=== PATIENT | male | born 2000 | race Caucasian/White ===

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

== ENCOUNTER 2020-02-11 15:56 | Emergency (ER) | payer MEDICAID ==
[~2020-02-11] VITALS: Ht 167.6 cm; Wt 70.3 kg
[~2020-02-11 15:56] MED LIST changes: -ACET-908 PO; -AMOX875T; -FLUO20CA22
[2020-02-11 16:02] VITALS: BP 128/69
[2020-02-11] MEDS ORDERED: FLUO20CA22 (16:06)
[2020-02-11] MEDS ORDERED: AMOX875T (16:06)
--- NOTE | 2020-02-12 06:18 | ECGEPIP ---
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 Order Number: [id number] Reading MD: Marvin Titus Measurements Intervals [place] Rate: 72 P: 40 OR: 179 QRS: 80 QRSD: 107 T: 48 QT: 338 QTc: 372 Interpretive Statements SINUS RHYTHM INCOMPLETE RIGHT BUNDLE BRANCH BLOCK NSTTW ABNORMALITY(S) SIMILAR TO 03/05/19 Electronically Signed on 02-12-2020 6:18:21 EDT by Marvin Titus
== END 2020-02-11 17:41 | disposition home or self-care (01) ==
LOC: M ED 15:56
DX: S23.41XA Sprain of ribs, initial encounter (principal); S70.01XA Contusion of right hip, initial encounter; W10.8XXA Fall (on) (from) other stairs and steps, initial encounter; Y92.9 Unspecified place or not applicable; Y93.9 Activity, unspecified; Y99.9 Unspecified external cause status; I45.10 Unspecified right bundle-branch block; F17.200 Nicotine dependence, unspecified, uncomplicated; Z88.8 Allergy status to other drugs, medicaments and biological substances

== ENCOUNTER 2020-03-07 13:29 | Emergency (ER) | payer MEDICAID ==
[~2020-03-07] VITALS: Ht 167.6 cm; Wt 68.9 kg
[~2020-03-07 13:29] MED LIST changes: +AMOX875T; +FLUO20CA22
[2020-03-07] MEDS ORDERED: ACET-908 PO (13:36)
[2020-03-07] MEDS ORDERED: IBUP-1022 PO (13:36)
[2020-03-07] MEDS ORDERED: ACETAMINOPHEN TAB 650MG DOSE (2X325MG) PO ONE (14:15)
--- NOTE | 2020-03-07 14:48 | REP ---
INDICATION: RIght hip pain s/p fall. COMPARISON: None. TECHNIQUE: AP view of the pelvis and AP and frogleg views of the right hip were obtained. FINDINGS: Bony pelvic ring is intact. No pelvic or sacral fracture is seen. No hip fracture is noted. There is sacralization of the transverse process on the left at L5. IMPRESSION: A transitional lumbosacral junction. No acute bony abnormality. No fracture seen. <Electronically signed by Casper Weeks > 03/07/20 [id number]
--- NOTE | 2020-03-07 14:50 | REP ---
INDICATION: R knee pain s/p fall. COMPARISON: Comparison radiographs are from March 07, 2019. TECHNIQUE: For FINDINGS: Four views of the right knee demonstrate normal bones, joints, and soft tissues. No fracture or subluxation is seen. No opaque foreign body noted. No sunrise view is included. IMPRESSION: Negative four view right knee series.. <Electronically signed by Casper Weeks > 03/07/20 [id number]
[2020-03-07 15:40] VITALS: BP 142/81
== END 2020-03-07 15:41 | disposition home or self-care (01) ==
LOC: M ED 13:29
DX: S70.01XA Contusion of right hip, initial encounter (principal); S80.01XA Contusion of right knee, initial encounter; X58.XXXA Exposure to other specified factors, initial encounter; Y92.018 Other place in single-family (private) house as the place of occurrence of the external cause; F17.210 Nicotine dependence, cigarettes, uncomplicated

== ENCOUNTER 2020-03-21 22:28 | Emergency (ER) | payer MEDICAID ==
[~2020-03-21] VITALS: Ht 167.6 cm; Wt 79.5 kg
[~2020-03-21 22:28] MED LIST changes: +ACET-908 PO
[2020-03-21 22:40] VITALS: BP 136/73
== END 2020-03-21 23:26 | disposition left against medical advice (07) ==
LOC: M ED 22:28
DX: Z53.21 Procedure and treatment not carried out due to patient leaving prior to being seen by health care provider (principal)

== ENCOUNTER → 2020-03-28 | Outpatient (REF) | payer MEDICAID ==
[~2020-03-28] MED LIST changes: +MIRT1TAB16 PO
[2020-03-28 17:18] LABS: HEMATOCRIT 48.7 % (42.0-52.0); HEMOGLOBIN 17.1 g/dl (13.5-17.5); MEAN CORPUSCULAR HEMOGLOBIN 30.4 pg (27.0-33.0); MEAN CORPUSCULAR HGB CONC 35.1 g/dl (32.0-36.5); MEAN CORPUSCULAR VOLUME 86.5 fl (80.0-96.0); PLATELET COUNT, AUTOMATED 213 10^3/uL (150-450); RED BLOOD COUNT 5.63 10^6/uL (4.30-6.10); WHITE BLOOD COUNT 6.7 10^3/uL (4.0-10.0)
[2020-03-28 17:43] LABS: BLOOD UREA NITROGEN 9 MG/DL (7-18); CALCIUM LEVEL 9.3 MG/DL (8.5-10.1); CARBON DIOXIDE LEVEL 32 MEQ/L (21-32); CHLORIDE LEVEL 105 MEQ/L (98-107); CREATININE FOR GFR 0.72 MG/DL (0.70-1.30); GLUCOSE, FASTING 83 MG/DL (70-100); POTASSIUM SERUM 3.8 MEQ/L (3.5-5.1); SODIUM LEVEL 141 MEQ/L (136-145); THYROID STIMULATING HORMONE 0.752 uIU/ML (0.463-3.98); VITAMIN B12 LEVEL 437 PG/ML
[2020-03-28 17:44] LABS: FOLATE 9.9 NG/ML
[2020-03-28 18:53] LABS: HEMOGLOBIN A1c 4.9 %
== END ==
LOC: M SFHCPLAZ 13:56
PROVIDERS: ATTEND Physician Assistant
DX: R42 Dizziness and giddiness (principal)

== ENCOUNTER 2020-04-01 20:41 | Emergency (ER) | payer MEDICAID ==
[~2020-04-01] VITALS: Ht 167.6 cm; Wt 71.8 kg
[~2020-04-01 20:41] MED LIST changes: -MIRT1TAB16 PO
[2020-04-01] MEDS ORDERED: ACETAMINOPHEN TAB 650MG DOSE (2X325MG) PO ONE (21:15)
[2020-04-01] MEDS ORDERED: MIRT1TAB16 PO (21:49)
[2020-04-01 22:30] VITALS: BP 119/67
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
== END 2020-04-01 23:02 | disposition home or self-care (01) ==
LOC: M ED 20:41
DX: S09.90XA Unspecified injury of head, initial encounter (principal); S80.212A Abrasion, left knee, initial encounter; Y04.0XXA Assault by unarmed brawl or fight, initial encounter; Y92.018 Other place in single-family (private) house as the place of occurrence of the external cause; F33.9 Major depressive disorder, recurrent, unspecified; Z79.899 Other long term (current) drug therapy; Z88.8 Allergy status to other drugs, medicaments and biological substances; F17.210 Nicotine dependence, cigarettes, uncomplicated

== ENCOUNTER 2020-05-10 05:18 | Emergency (ER) | payer MEDICAID ==
[~2020-05-10] VITALS: Ht 167.6 cm; Wt 71.8 kg
[~2020-05-10 05:18] MED LIST changes: +MIRT1TAB16 PO
[2020-05-10] MEDS ORDERED: LORazepam 2 MG/ML VIAL IM ONE (05:30)
[2020-05-10] MEDS ORDERED: diphenhydrAMINE 50MG/ML VIAL (J1200) IM ONE (05:30)
[2020-05-10] MEDS ORDERED: HALOPERIDOL 5MG/ML VIAL (J1630 PER 1) IM ONE (05:30)
[2020-05-10] MEDS ORDERED: LORazepam 2 MG/ML VIAL As Ordered ONE (05:31)
[2020-05-10 06:55] LABS: HEMATOCRIT 47.7 % (42.0-52.0); MEAN CORPUSCULAR HEMOGLOBIN 30.7 pg (27.0-33.0); MEAN CORPUSCULAR HGB CONC 35.6 g/dl (32.0-36.5); MEAN CORPUSCULAR VOLUME 86.3 fl (80.0-96.0); PLATELET COUNT, AUTOMATED 315 10^3/uL (150-450); RED BLOOD COUNT 5.53 10^6/uL (4.30-6.10); WHITE BLOOD COUNT 12.1 10^3/uL (4.0-10.0)
[2020-05-10 08:05] LABS: ACETAMINOPHEN LEVEL < 2.0 UG/ML (10.0-30.0); ALBUMIN 4.6 GM/DL (3.2-5.2); ALT/SGPT 31 U/L (12-78); BILIRUBIN,DIRECT 0.1 MG/DL (0.0-0.2); BILIRUBIN,TOTAL 0.5 MG/DL (0.2-1.0); BLOOD UREA NITROGEN 11 MG/DL (7-18); CALCIUM LEVEL 8.5 MG/DL (8.5-10.1); CARBON DIOXIDE LEVEL 20 MEQ/L (21-32); CHLORIDE LEVEL 110 MEQ/L (98-107); CREATININE FOR GFR 0.98 MG/DL (0.70-1.30); ETHYL ALCOHOL (ETHANOL) 0.161 % (0.000-0.010); GLUCOSE, FASTING 142 MG/DL (70-100); POTASSIUM SERUM 3.8 MEQ/L (3.5-5.1); SALICYLATE LEVEL 2.1 MG/DL (5.0-30.0); SODIUM LEVEL 145 MEQ/L (136-145); THYROID STIMULATING HORMONE 0.776 uIU/ML (0.463-3.98); TOTAL PROTEIN 8.1 GM/DL (6.4-8.2)
[2020-05-10 11:58] LABS: AMPHETAMINES LEVEL URINE NEGATIVE (NEGATIVE); BARBITURATES URINE NEGATIVE (NEGATIVE); BENZODIAZEPINES URINE NEGATIVE (NEGATIVE); CANNABINOIDS URINE NEGATIVE (NEGATIVE); COCAINE METABOLITE URINE NEGATIVE (NEGATIVE); METHADONE URINE NEGATIVE (NEGATIVE); OPIATES URINE NEGATIVE (NEGATIVE); PHENCYCLIDINE URINE NEGATIVE (NEGATIVE)
[2020-05-10 12:38] VITALS: BP 141/69
== END 2020-05-10 13:35 | disposition home or self-care (01) ==
LOC: M ED 05:18
DX: F10.229 Alcohol dependence with intoxication, unspecified (principal); Y90.0 Blood alcohol level of less than 20 mg/100 ml; Z79.899 Other long term (current) drug therapy; Z88.8 Allergy status to other drugs, medicaments and biological substances
CPT/HCPCS: 36415; 80048; 80076; 80307; 84443; 85027; 96372; 99285; G0480; J1200; J1630; J2060

== ENCOUNTER 2020-07-09 18:02 | Emergency (ER) | payer MEDICAID ==
[~2020-07-09] VITALS: Ht 165.1 cm; Wt 74.4 kg
[2020-07-09 18:04] VITALS: BP 134/77
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
[2020-07-09] MEDS ORDERED: IBUPROFEN 800 MG TAB PO ONE (18:50)
== END 2020-07-09 19:02 | disposition home or self-care (01) ==
LOC: M ED 18:02
DX: S60.512A Abrasion of left hand, initial encounter (principal); W22.8XXA Striking against or struck by other objects, initial encounter; Y92.018 Other place in single-family (private) house as the place of occurrence of the external cause; Z88.8 Allergy status to other drugs, medicaments and biological substances; F17.210 Nicotine dependence, cigarettes, uncomplicated

== ENCOUNTER 2020-09-23 16:40 | Emergency (ER) | payer MEDICAID ==
[~2020-09-23] VITALS: Ht 167.6 cm; Wt 71.8 kg
[~2020-09-23 16:40] MED LIST changes: -ACET-908 PO; +ACET-910 PO
[2020-09-23 16:47] VITALS: BP 130/86
[2020-09-23] MEDS ORDERED: MELA10CA2 PO (16:53)
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
[2020-09-23] MEDS ORDERED: ACETAMINOPHEN TAB 650MG DOSE (2X325MG) PO ONE (18:00)
== END 2020-09-23 18:25 | disposition home or self-care (01) ==
LOC: M ED 16:40
DX: S60.221A Contusion of right hand, initial encounter (principal); S80.01XA Contusion of right knee, initial encounter; T14.8XXA Other injury of unspecified body region, initial encounter; V19.3XXA Pedal cyclist (driver) (passenger) injured in unspecified nontraffic accident, initial encounter; Y92.018 Other place in single-family (private) house as the place of occurrence of the external cause; F84.5 Asperger's syndrome; Z87.820 Personal history of traumatic brain injury; Z79.899 Other long term (current) drug therapy; Z88.8 Allergy status to other drugs, medicaments and biological substances

== ENCOUNTER 2021-03-10 00:52 | Emergency (ER) | payer MEDICAID ==
[~2021-03-10] VITALS: Ht 167.6 cm; Wt 65.9 kg
[2021-03-10 00:52] VITALS: BP 133/72
[~2021-03-10 00:52] MED LIST changes: +MELA10CA2 PO
--- OUTSIDE RECORDS SUMMARY | 2021-03-10 00:56 | CCD ---
Author Author Dave Benavidez Organization Unknown Address [address] [address] Phone Care Team Providers Care Box Car Checker Name Role Phone Marilyn Benavidez PCP Allergies, Adverse Reactions, Alerts Concept Allergy Name Reaction Severity Onset Date Status Documentation Date Phone Number Npid Taxonomy Code Taxonomy Desc Author Last Name Author Fi rst Name Concept Type 19921214 risperidone unspecified 11/27/2015 Active 11/27/2015 31 [id number] Psychiatry Woznchristiano Overton RXNORM 19921214 risperidone unspecified Active 05/07/2014 [id number] Registered Nurse Lyly Dailey RXNORM Problem List Concept Problem Description Status Start Date Created Date Resolv ed Date Snomed Code F32.9 Unspecified depressive Disorder Active 12/28/19 21 F70 Intellectual Disability (Intellectual Developmen mariya Disorder), Mild Active 12/27/2020 Medications Rx Norm Medication Route Route Concept Start Date Stop Date Dosage Johnny quency Duration Formula Strength Dosage Form Dosage Form Code Dosage Description Medication Id Account Npid Author First Name Author Last Name Taxonomy Code Taxonomy Desc Phone Number [id number] amantadine HCl 05/07/2014 100 mg capsule as directed 60586 [id number] Jerry Rdz [id number] Child & Adolescent Psychi atry [id number] chlorpromazine 05/07/2014 at bedtime 25 [place] 23203 163823 [id number] Tian Lea [id number] Psychiatry [id number] 451361 memantine 11/27/2015 at bedtime 10 mg tablet 82062 831875 [id number] Tian Lea [id number] Psychiatry [id number] 234688 Seroquel 11/27/2015 at bedtime 300 mg tablet 45406 019629 [id number] Tian Lea [id number] Psychiatry [id number] 792104 clonidine HCl 12/30/2015 twice a day 0.2 [place] [address] 431327 [id number] Tian Lea [id number] Psychiatry [id number] Allergy Relief (cetirizine) 12/30/2015 at bedtim e 10 mg tablet 30282 890302 [id number] Jerry Rdz [id number] Child & Ad olescent Psychiatry [id number] 7930169 Depakote 02/25/2016 every morning 250 mg tablet,delayed release (DR/EC) 01341 879651 [id number] Jerry Rdz [id number] ild & Adolescent Psychiatry [id number] 360595 Abilify 03/13/2016 twice a day 30 5 mg tablet 44422 890704 [id number] Tian Lea [id number] Psychiatry [id number] 0249574 Depakote 03/25/2016 at bedtime 500 mg tablet,delayed release (DR/EC) 02047 601558 [id number] Tian Lea [id number] Psychi atry [id number] Social History Social History Element Description Concept Effective Date Smoking Status Unknown if ever smoked [id number] Immunizations No Data in Section Vital Signs No Data in Section Procedures Date Concept Id Description Targeted Site Concept Targeted Site Concept Type 12/27/2020 22319 Brief Individual Psychotherapy - 30 min CPT Patient has no history of implantable de vices Encounters Encounter Start Date End Date Encounter Type Description Diagnosis Di agnosis Desc Location Author First Name Author Last Name Npid Taxonomy Cod e Taxonomy Desc Phone Number Location Addr1 Location Addr2 Location [facility] Location [facility] Location [facility] [place] [id number] 12/27/2020 12/27/2020 04237 Brief Individual Psychoth erapy - 30 min F32.9 Major depressive disorder, single episode, unspecified [facility] [id number] [place] [employer] 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
--- OUTSIDE RECORDS SUMMARY | 2021-03-10 00:57 | CCD ---
Author Author [facility] Organization [facility] Address Unknown Phone Unavailable Support Name Relationship Address Phone RITCHIE LOVE Next Of Kin [address] [place] [address] BRITTANY CANTU Next Of Kin [address] [place] [address] ADRIÁN ALONZO Next Of Kin [address] [address] MORGAN GONZALEZ Next Of Kin [address] [address] RHONDA GONZALEZ. Next Of Kin [address] [address] Becca Fine DDS Next Of Kin [address] [place] [id number] NEIL SWEENEY Next Of Kin [address] [facility] [address] [place] [address] VIRGINIE, SHREYA Next Of Kin Unknown Unavailable JAMES SORENSEN Next Of Kin [address] [place], [place] [id number] FABIAN SALINAS Next Of Kin [address] [facility] [address] [place] [address] Becca Fine DDS Next Of Kin [address] [place] [address] UE Next Of Kin Unknown Unavailable RAAF ENCARNACION Next Of Kin [address] [facility] [place] [address] [facility] Next Of Kin [address] [place] [address] PEYTON LOVE Next Of Kin [address] [place] [address] LOVEGABINO SEOY Next Of Kin [address] [place] [id number] RESIDENTIAL, DONN Next Of Kin [address] [place] [address] CHILD Next Of Kin Unknown Unavailable RHONDA GONZALEZ Next Of Kin [address] [facility] 3 [place] [address] Mounika Gonzalez ECON [address] [place] [address] Unavailable Miryam GONZALEZ ECON [address] [place] [address] [phone] Silverio Peyton ECON Unknown Un[place] [address] Unavailable Care Team Providers Care Inking Machine Tender Name Role Phone Maring, Marquis PA Unavailable Unavailable Maring, Marquis PA Unavailable Unavailable Maring, Marquis PA Unavailable Unavailable Maring, Marquis PA Unavailable Unavailable Maring, Marquis PA Unavailable Unavailable Maring, Marquis PA Unavailable Unavailable Maring, Marquis PA Unavailable Unavailable Maring, Marquis PA Unavailable Unavailable Maring, Marquis PA Unavailable Unavailable Maring, Marquis PA Unavailable Unavailable Maring, Marquis PA Unavailable Unavailable Maring, Marquis PA Unavailable Unavailable Maring, Marquis PA Unavailable Unavailable Maring, Marquis PA Unavailable Unavailable Maring, Marquis PA Unavailable Unavailable Maring, Marquis PA Unavailable Unavailable Feola, T Pennie PA Unavailable Unavailable Feola, T Pennie PA Unavailable Unavailable Feola, T Pennie PA Unavailable Unavailable Feola, T Pennie PA Unavailable Unavailable Feola, T Pennie PA Unavailable Unavailable Feola, T Pennie PA Unavailable Unavailable Feola, T Pennie PA Unavailable Unavailable Feola, T Pennie PA Unavailable Unavailable Feola, T Pennie PA Unavailable Unavailable Feola, T Pennie PA Unavailable Unavailable Feola, T Pennie PA Unavailable Unavailable Feola, T Pennie PA Unavailable Unavailable Feola, T Pennie PA Unavailable Unavailable Feola, T Pennie PA Unavailable Unavailable Feola, T Pennie PA Unavailable Unavailable Feola, T Pennie PA Unavailable Unavailable Feola, T Pennie PA Unavailable Unavailable Feola, T Pennie PA Unavailable Unavailable Feola, T Pennie PA Unavailable Unavailable Feola, T Pennie PA Unavailable Unavailable Feola, T Pennie PA Unavailable Unavailable Feola, T Pennie PA Unavailable Unavailable Feola, T Pennie PA Unavailable Unavailable Feola, T Pennie PA Unavailable Unavailable Feola, T Pennie PA Unavailable Unavailable Feola, T Pennie PA Unavailable Unavailable Feola, T Pennie PA Unavailable Unavailable Feola, T Pennie PA Unavailable Unavailable Feola, T Pennie PA Unavailable Unavailable Feola, T Pennie PA Unavailable Unavailable Feola, T Pennie PA Unavailable Unavailable Feola, T Pennie PA Unavailable Unavailable Feola, T Pennie PA Unavailable Unavailable Feola, T Pennie PA Unavailable Unavailable Feola, T Pennie PA Unavailable Unavailable Feola, T Pennie PA Unavailable Unavailable Feola, T Pennie PA Unavailable Unavailable Feola, T Pennie PA Unavailable Unavailable Feola, T Pennie PA Unavailable Unavailable Feola, T Pennie PA Unavailable Unavailable Feola, T Pennie PA Unavailable Unavailable PramodEveMarilyn Unavailable Dalia Bentley Unavailable Re-disclosure Warning The records that you are about to access may contain information from federally-assisted alcohol or drug abuse programs. If such information is present, then the following federally mandated warning applies: This information has been disclosed to you from records protected by federal confidentiality rules (42 CFR part 2). The federal rules prohibit you from making any further disclosure of this information unless further disclosure is expressly permitted by the written consent of the person to whom it pertains or as otherwise permitted by 42 CFR part 2. A general authorization for the release of medical or other information is NOT sufficient for this purpose. The Federal rules restrict any use of the information to criminally investigate or prosecute any alcohol or drug abuse patient.The records that you are about to access may contain highly sensitive health information, the redisclosure of which is protected by Article 27-F of the [facility] Public Health law. If you continue you may have access to information: Regarding HIV / AIDS; Provided by facilities licensed or operated by the [facility] Office of Mental Health; or Provided by the [facility] Office for People With Developmental Disabilities. If such information is present, then the following [facility] mandated warning applies: This information has been disclosed to you from confidential records which are protected by state law. State law prohibits you from making any further disclosure of this information without the specific written consent of the person to whom it pertains, or as otherwise permitted by law. Any unauthorized further disclosure in violation of state law may result in a fine or residential sentence or both. A general authorization for the release of medical or other information is NOT sufficient authorization for further disc losure. Allergies and Adverse Reactions Type Description Substance Reaction Status Data Source(s ) Propensity to adverse reactions to substance risperidone Risperidone 1 MG/ML Oral Solution Active [facility] ([facility]) Propensity to adverse reactions to substance risperidone Risperidone 1 MG/ML Oral Solution Active [facility] ([facility]) Family History Family Member Name Family Member Gender Family Member Status Date o f Status Description Data Source(s) Unknown Unknown Problem [facility] ([facility]) Unknown Unknown Problem [facility] ([facility]) Encounters Encounter Providers Location Date Indications Data Source(s ) Outpatient Attender: Marquis 02/28/20 11:46:56 AM EDT - 02/27/2021 01:07:41 PM EDT [facility] ([facility] ) Outpatient Attender: Pennie MON 021 01:45:38 PM EDT - 01/14/2021 03:50:42 PM EDT [facility] ([facility] ) Brief Individual Psychotherapy - 30 min Attender: Marilyn saini [facility] 12/27/2020 03:00:00 AM EDT - 12/27/2020 03:00:00 AM EDT [facility] ([facility]) Attender: Marilyn Benavidez 12/27/2020 12:00:00 AM EDT [facility] ([facility]) Outpatient Attender: Marquis 11/25/19 04:06:31 PM EDT - 11/24/2020 04:35:39 PM EDT [facility] ([facility] ) Extended Individual Psychotherapy - 45 min Attender: Dalia Bentley [facility] 10/14/2020 02:45:00 AM EDT - 10/14/2020 02:45:00 AM EDT [facility] ([facility]) Attender: Dalia Bentley 10/14/2020 12:00:00 AM EDT [facility] ([facility]) [place] [address] [address] 07/10/2020 12:00:00 AM EST eCW1 ([facility]) [place] [address] [address] 07/09/2020 12:00:00 AM EST eCW1 ([facility]) [place] [address] [address] 06/28/2020 12:00:00 AM EST eCW1 ([facility]) [place] [address] [address] 06/25/2020 12:00:00 AM EST eCW1 ([facility]) [place] [address] [address] 06/17/2020 12:00:00 AM EST eCW1 ([facility]) [place] [address] [address] 06/14/2020 12:00:00 AM EST eCW1 ([facility]) [place] [address] [address] 05/16/2020 12:00:00 AM EST eCW1 ([facility]) [place] [address] [address] 04/18/2020 12:00:00 AM EST eCW1 ([facility]) Outpatient [address] [address] 03/28/2020 12:00:00 AM EST eCW1 ([facility]) [place] [address] [address] 03/22/2020 12:00:00 AM EST eCW1 ([facility]) [place] [address] [facility] [place] [address] 03/22/2020 12:00:00 AM EST eCW1 ([facility]) [place] [address] [facility] [place] [address] 03/19/2020 12:00:00 AM EST eCW1 ([facility]) Immunizations Vaccine Date Status Description Data Source(s) COVID-19 VACCINE Tory 10/12/2020 12:00:00 AM EDT completed [facility] Vaccine Series Complete: YESThis Data wa s Submitted to [facility] Via [facility]. Medications No Information Insurance Providers Payer name Policy type / Coverage type Policy ID Covered green party ID Covered green party's relationship to bocanegra Policy [place] Plan Information Medicaid Dental S [id number] MEDICAID M [id number] Self [id number] Medicaid Dental S [id number] Medicaid P [id number] S [id number] Medicaid Medicaid [id number] Self [id number] UNAVAILABLE UNAVAILA BLE SELF PAY UNAVAILABLE SELF UNAVAILA BLE Medicaid-Pcap Medicaid [id number] Family Dependent MEDICAID [id number] SP [id number] SELF PAY 2 UNAVAILABLE 1 UNAVAILA BLE MEDICAID [facility] 3 [id number] E MEDICAID REF AMBULAT W [id number] S [id number] MEDICAID DESCREPANCY W [id number] S [id number] [facility] MEDICAID [id number] SP [id number] E EMEDNY [id number] SP [id number] MEDICAID [id number] SP [id number] MEDICAID M [id number] S [id number] Medicaid P [id number] S [id number] Problems, Conditions, and Diagnoses Code Display Name Description Problem Type Effective Dates Data Source(s) F70 Mild intellectual disabilities Intellect ual Disability (Intellectual Developmental Disorder), Mild Condition 12/27/2020 12:00:00 AM EDT [facility] ([facility]) F32.9 Major depressive disorder, single episod e, unspecified Unspecified depressive Disorder Condition 12/27/2020 12:00:00 AM EDT [facility] ([facility]) Surgeries/Procedures Procedure Description Date Indications Data Source(s) Brief Individual Psychotherapy - 30 min 12/27/2020 12:00:00 AM EDT - 12/27/2020 12:00:00 AM EDT [facility] ([facility]) Brief Individual Psychotherapy - 30 min 12/27/2020 12: 00:00 AM EDT [facility] ([facility]) Extended Individual Psychotherapy - 45 min 10/14/2020 12:00:00 AM EDT - 10/14/2020 12:00:00 AM EDT [facility] ([facility]) Extended Individual Psychotherapy - 45 min 12:00:00 AM EDT [facility] ([facility]) Results ID Date Data Source [id number] 02/27/2021 12:00:00 PM EDT [facility] Name Value Range Interpretation Code Description Data Davina rce(s) Supporting Document(s) SARS-CoV-2 RNA Resp Ql STEPHANIE+probe NOT DETECTED [facility] This lab was ordered by SHANTELL barker and reported by SHANTELL Cadena. ID Date Data Source [id number] 02/04/2021 02:15:00 PM EDT [facility] Name Value Range Interpretation Code Description Data Davina rce(s) Supporting Document(s) SARS-CoV-2 RNA Resp Ql STEPHANIE+probe NOT DETECTED [facility] This lab was ordered by SHANTELL barker and reported by SHANTELL Cadena. ID Date Data Source [id number] 01/07/2021 03:45:00 PM EDT [facility] Name Value Range Interpretation Code Description Data Davina rce(s) Supporting Document(s) SARS-CoV-2 RNA Resp Ql STEPHANIE+probe NOT DETECTED [facility] This lab was ordered by SHANTELL barker and reported by SHANTELL Cadena. ID Date Data Source [id number] 03/28/2020 12:00:00 AM EST eCW1 ([facility]) Name Value Range Interpretation Code Description Data Davina rce(s) Supporting Document(s) 437 eCW1 ([facility]) 9.9 eCW1 ([facility]) ID Date Data Source Basic Metabolic Profile (BMP) 03/28/2020 12:00:00 AM EST eCW 1 ([facility]) Name Value Range Interpretation Code Description Data Davina rce(s) Supporting Document(s) 83 70-100 eCW1 ([facility]) 105 98-107 eCW1 ([facility]) 141 136-145 eCW1 ([facility]) 9 7-18 eCW1 ([facility]) 0.72 0.70-1.30 eCW1 ([facility]) 3.8 3.5-5.1 eCW1 ([facility]) 9.3 8.5-10.1 eCW1 ([facility]) 32 21-32 eCW1 ([facility]) ID Date Data Source [id number] 03/28/2020 12:00:00 AM EST eCW1 ([facility]) Name Value Range Interpretation Code Description Data Davina rce(s) Supporting Document(s) Hemoglobin A1c/Hemoglobin.total in Blood 4.9 eCW1 ([facility]) ID Date Data Source FREE T4 & TSH PANEL 03/28/2020 12:00:00 AM EST eCW1 ([facility]) Name Value Range Interpretation Code Description Data Davina rce(s) Supporting Document(s) 1.00 0.78-1.33 eCW1 ([facility]) 0.752 0.463-3.98 eCW1 ([facility]) ID Date Data Source CBC - Complete Blood Count 03/28/2020 12:00:00 AM EST eCW1 ( [facility]) Name Value Range Interpretation Code Description Data Davina rce(s) Supporting Document(s) 5.63 4.30-6.10 eCW1 ([facility]) 86.5 80.0-96.0 eCW1 ([facility]) 6.7 4.0-10.0 eCW1 ([facility]) 17.1 13.5-17.5 eCW1 ([facility]) 48.7 42.0-52.0 eCW1 ([facility]) 35.1 32.0-36.5 eCW1 ([facility]) 213 150-450 eCW1 ([facility]) 12.2 11.5-14.5 eCW1 ([facility]) 30.4 27.0-33.0 eCW1 ([facility]) Procedure Social History Code Duration Value Status Description Data Source(s ) Smoking 12/27/2020 12:00:00 AM EDT Unknown if ever smoked comp leted Unknown if ever smoked [facility] ([facility]) Smoking 10/14/2020 12:00:00 AM EDT Unknown if ever smoked comp leted Unknown if ever smoked [facility] ([facility]) Smoking 03/28/2020 12:00:00 AM EST Current Smoker completed Curre nt Smoker eCW1 ([facility]) Smoking 03/28/2020 12:00:00 AM EST Current Smoker completed Curre nt Smoker eCW1 ([facility]) Smoking 03/28/2020 12:00:00 AM EST Current Smoker completed Curre nt Smoker eCW1 ([facility]) Smoking 03/28/2020 12:00:00 AM EST Current Smoker completed Curre nt Smoker eCW1 ([facility]) Smoking 03/28/2020 12:00:00 AM EST Current Smoker completed Curre nt Smoker eCW1 ([facility]) Smoking 03/28/2020 12:00:00 AM EST Current Smoker completed Curre nt Smoker eCW1 ([facility]) Smoking 03/28/2020 12:00:00 AM EST Current Smoker completed Curre nt Smoker eCW1 ([facility]) Smoking 03/28/2020 12:00:00 AM EST Current Smoker completed Curre nt Smoker eCW1 ([facility]) Smoking 03/28/2020 12:00:00 AM EST Current Smoker completed Curre nt Smoker eCW1 ([facility]) Smoking 03/28/2020 12:00:00 AM EST Current Smoker completed Curre nt Smoker eCW1 ([facility]) Vital Signs ID Date Data Source UNK Name Value Range Interpretation Code Description Data Source(s) Body weight 158 [lb_av] 158 [lb_av] eCW1 ([facility]) Body height 66 [in_i] 66 [in_i] eCW1 ([facility]) Body mass index (BMI) [Ratio] 25.50 kg/m2 25.50 kg/m2 eCW1 ([facility]) Heart rate 92 /min 92 /min eCW1 ([facility]) Respiratory rate 18 /min 18 /min eCW1 ([facility]) Body temperature 97.74 [degF] 97.74 [degF] eCW1 ([facility]) Systolic blood pressure 112 mm[Hg] 112 mm[Hg] e CW1 ([facility]) Diastolic blood pressure 70 mm[Hg] 70 mm[Hg] eCW1 ([facility])
--- OUTSIDE RECORDS SUMMARY | 2021-03-10 01:18 | CCD ---
Author Author [facility] Organization [facility] Address Unknown Phone Unavailable Support Name Relationship Address Phone RITCHIE LOVE Next Of Kin [address] [place] [address] BRITTANY CANTU Next Of Kin [address] [place] [address] ADRIÁN ALONZO Next Of Kin [address] [address] MORGAN GONZALEZ Next Of Kin [address] [address] RHONDA GONZALEZ. Next Of Kin [address] [address] Becca Fine DDS Next Of Kin [address] [place], [place] [id number] NEIL SWEENEY Next Of Kin [address] [facility] [address] [place] [address] VIRGINIE, SHREYA Next Of Kin Unknown Unavailable JAMES SORENSEN Next Of Kin [address] [place], [place] [id number] FABIAN SALINAS Next Of Kin [address] [facility] [address] [place] [address] Becca Fine DDS Next Of Kin [address] [place] [address] UE Next Of Kin Unknown Unavailable RAFA ENCARNACOIN Next Of Kin [address] [facility] [place] [address] [facility] Next Of Kin [address] [place] [address] PEYTON LOVE Next Of Kin [address] [place] [address] LOVEGABINO SEOY Next Of Kin [address] [place] [id number] RESIDENTIAL, DONN Next Of Kin [address] [place] [address] CHILD Next Of Kin Unknown Unavailable RHONDA GONZALEZ Next Of Kin [address] [facility] [address] [place] [address] Mounika Gonzalez ECON [address] [place] [address] Unavailable Miryam GONZALEZ ECON [address] [place] [address] [phone] Silverio Peyton ECON Unknown Unavailable [place] [address] Unavailable Care 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 If you continue you may have access to information: Regarding HIV / AIDS; Provided by facilities licensed or operated by the [facility] Office of Mental Health; or Provided by the [facility] Office for People With Developmental Disabilities. If such information is present, then the following [facility] mandated warning applies: This information has [...] law may result in a fine or snf sentence or both. A general authorization for [...] Description Data Source(s) Unknown Unknown Problem [facility] ([facility]) Unknown Unknown Problem [facility] ([facility]) Encounters Encounter Providers Location Date Indications Data Source(s ) Outpatient Attender: Marquis 02/28/20 11:46:56 AM EDT - 02/27/2021 01:07:41 PM EDT [facility] ([facility] ) Outpatient Attender: Pennie MON 021 01:45:38 PM EDT - 01/14/2021 03:50:42 PM EDT [facility] ([facility] ) Brief Individual Psychotherapy - 30 min Attender: Marilyn saini [facility] 12/27/2020 03:00:00 AM EDT - 12/27/2020 03:00:00 AM EDT [facility] ([facility]) Attender: Marilyn Benavidez 12/27/2020 12:00:00 AM EDT [facility] ([facility]) Outpatient Attender: Marquis 11/25/19 04:06:31 PM EDT - 11/24/2020 04:35:39 PM EDT [facility] ([facility] ) Extended Individual Psychotherapy - 45 min Attender: Dalia Bentley [facility] 10/14/2020 02:45:00 AM EDT - 10/14/2020 02:45:00 AM EDT [facility] ([facility]) Attender: Dalia Bentley 10/14/2020 12:00:00 AM EDT [facility] ([facility]) Unknown [address] [facility] [address] 07/10/2020 12:00:00 AM EST eCW1 ([facility]) [place] [address] [facility] [address] 07/09/2020 12:00:00 AM EST eCW1 ([facility]) [place] [address] [facility] [address] 06/28/2020 12:00:00 AM EST eCW1 ([facility]) [place] [address] [facility] [address] 06/25/2020 12:00:00 AM EST eCW1 ([facility]) [place] [address] [facility] [address] 06/17/2020 12:00:00 AM EST eCW1 ([facility]) [place] [address] [facility] [address] 06/14/2020 12:00:00 AM EST eCW1 ([facility]) Unknown [address] [facility] [address] 05/16/2020 12:00:00 AM EST eCW1 ([facility]) [place] [address] [facility] [address] 04/18/2020 12:00:00 AM EST eCW1 ([facility]) Outpatient [address] [facility] [address] 03/28/2020 12:00:00 AM EST eCW1 ([facility]) Unknown [address] [facility] [address] 03/22/2020 12:00:00 AM EST eCW1 ([facility]) [place] [address] [facility] [place] [address] 03/22/2020 12:00:00 AM EST eCW1 ([facility]) Unknown [address] [facility] [place] [address] 03/19/2020 12:00:00 AM EST eCW1 ([facility]) Immunizations Vaccine Date Status Description Data Source(s) COVID-19 VACCINE Tory 10/12/2020 12:00:00 AM EDT completed [facility] Vaccine Series Complete: YESThis Data wa s Submitted to [facility] [place] [place]. Medications No Information Insurance Providers Payer name Policy type / Coverage type Policy ID Covered green party ID Covered green party's relationship to bocanegra Policy [place] Plan Information Medicaid Dental S [id number] S [id number] MEDICAID M [id number] Self [id number] Medicaid Dental S [id number] S [id number] Medicaid P [id number] S [id number] Medicaid Medicaid [id number] Self [id number] O UNAVAILABLE UNAVAILA BLE SELF PAY UNAVAILABLE SELF UNAVAILA BLE Medicaid-Pcap Medicaid [id number] Family Dependent MEDICAID [id number] SP [id number] SELF PAY 2 UNAVAILABLE 1 UNAVAILA BLE MEDICAID [facility] 3 [id number] 1 [id number] E MEDICAID REF AMBULAT W [id number] S [id number] MEDICAID DESCREPANCY W [id number] S [id number] [facility] MEDICAID [id number] SP [id number] E EMEDNY [id number] SP [id number] MEDICAID [id number] SP [id number] MEDICAID M [id number] S [id number] Medicaid P [id number] S [id number] Problems, Conditions, and Diagnoses Code Display Name Description Problem Type Effective Dates Data Source(s) F70 Mild intellectual disabilities Intellect ual Disability (Intellectual Developmental Disorder), Mild Condition 12/27/2020 12:00:00 AM EDT [facility] ([facility]) F32.9 Major depressive disorder, single episod e, unspecified Unspecified depressive Disorder Condition 12/27/2020 12:00:00 AM EDT [facility] ([facility]) Surgeries/Procedures Procedure Description Date Indications Data Source(s) Brief Individual Psychotherapy - 30 min 12/27/2020 12:00:00 AM EDT - 12/27/2020 12:00:00 AM EDT [facility] ([facility]) Brief Individual Psychotherapy - 30 min 12/27/2020 12: 00:00 AM EDT [facility] ([facility]) Extended Individual Psychotherapy - 45 min 10/14/2020 12:00:00 AM EDT - 10/14/2020 12:00:00 AM EDT [facility] ([facility]) Extended Individual Psychotherapy - 45 min 12:00:00 AM EDT [facility] ([facility]) Results ID Date Data Source [id number] 02/27/2021 12:00:00 PM EDT [facility] Name Value Range Interpretation Code Description Data Davina rce(s) Supporting Document(s) SARS-CoV-2 RNA Resp Ql STEPHANIE+probe NOT DETECTED [facility] This lab was ordered by SHANTELL barker and reported by SHANTELL Cadena. ID Date Data Source [id number] 02/04/2021 02:15:00 PM EDT [facility] Name Value Range Interpretation Code Description Data Davina rce(s) Supporting Document(s) SARS-CoV-2 RNA Resp Ql STEPHANIE+probe NOT DETECTED [facility] This lab was ordered by SHANTELL barker and reported by SHANTELL Cadena. ID Date Data Source [id number] 01/07/2021 03:45:00 PM EDT [facility] Name Value Range Interpretation Code Description Data Davina rce(s) Supporting Document(s) SARS-CoV-2 RNA Resp Ql STEPHANIE+probe NOT DETECTED [facility] This lab was ordered by SHANTELL barker and reported by SHANTELL Cadena. ID Date Data Source [id number] 03/28/2020 12:00:00 AM EST eCW1 ([facility]) Name Value Range Interpretation Code Description Data Davina rce(s) Supporting Document(s) 437 eCW1 ([facility]) 9.9 eCW1 ([facility]) ID Date Data Source Basic Metabolic Profile (BMP) 03/28/2020 12:00:00 AM EST eCW 1 ([facility]) Name Value Range Interpretation Code Description Data Davina rce(s) Supporting Document(s) 83 70-100 eCW1 ([facility]) 105 98-107 eCW1 ([facility]) 141 136-145 eCW1 ([facility]) 9 7-18 eCW1 ([facility]) 0.72 0.70-1.30 eCW1 ([facility]) 3.8 3.5-5.1 eCW1 ([facility]) 9.3 8.5-10.1 eCW1 ([facility]) 32 21-32 eCW1 ([facility]) ID Date Data Source [id number] 03/28/2020 12:00:00 AM EST eCW1 ([facility]) Name Value Range Interpretation Code Description Data Davian rce(s) Supporting Document(s) Hemoglobin A1c/Hemoglobin.total in Blood 4.9 eCW1 ([facility]) ID Date Data Source FREE T4 & TSH PANEL 03/28/2020 12:00:00 AM EST eCW1 ([facility]) Name Value Range Interpretation Code Description Data Davina rce(s) Supporting Document(s) 1.00 0.78-1.33 eCW1 ([facility]) 0.752 0.463-3.98 eCW1 ([facility]) ID Date Data Source CBC - Complete Blood Count 03/28/2020 12:00:00 AM EST eCW1 ( [facility]) Name Value Range Interpretation Code Description Data Davina rce(s) Supporting Document(s) 5.63 4.30-6.10 eCW1 ([facility]) 86.5 80.0-96.0 eCW1 ([facility]) 6.7 4.0-10.0 eCW1 ([facility]) 17.1 13.5-17.5 eCW1 ([facility]) 48.7 42.0-52.0 eCW1 ([facility]) 35.1 32.0-36.5 eCW1 ([facility]) 213 150-450 eCW1 ([facility]) 12.2 11.5-14.5 eCW1 ([facility]) 30.4 27.0-33.0 eCW1 ([facility]) Procedure Social History Code Duration Value Status Description Data Source(s ) Smoking 12/27/2020 12:00:00 AM EDT Unknown if ever smoked comp leted Unknown if ever smoked [facility] ([facility]) Smoking 10/14/2020 12:00:00 AM EDT Unknown if ever smoked comp leted Unknown if ever smoked [facility] ([facility]) Smoking 03/28/2020 12:00:00 AM EST Current Smoker completed Curre nt Smoker eCW1 ([facility]) Smoking 03/28/2020 12:00:00 AM EST Current Smoker completed Curre nt Smoker eCW1 ([facility]) Smoking 03/28/2020 12:00:00 AM EST Current Smoker completed Curre nt Smoker eCW1 ([facility]) Smoking 03/28/2020 12:00:00 AM EST Current Smoker completed Curre nt Smoker eCW1 ([facility]) Smoking 03/28/2020 12:00:00 AM EST Current Smoker completed Curre nt Smoker eCW1 ([facility]) Smoking 03/28/2020 12:00:00 AM EST Current Smoker completed Curre nt Smoker eCW1 ([facility]) Smoking 03/28/2020 12:00:00 AM EST Current Smoker completed Curre nt Smoker eCW1 ([facility]) Smoking 03/28/2020 12:00:00 AM EST Current Smoker completed Curre nt Smoker eCW1 ([facility]) Smoking 03/28/2020 12:00:00 AM EST Current Smoker completed Curre nt Smoker eCW1 ([facility]) Smoking 03/28/2020 12:00:00 AM EST Current Smoker completed Curre nt Smoker eCW1 ([facility]) Vital Signs ID Date Data Source UNK Name Value Range Interpretation Code Description Data Source(s) Body weight 158 [lb_av] 158 [lb_av] eCW1 ([facility]) Body height 66 [in_i] 66 [in_i] eCW1 ([facility]) Body mass index (BMI) [Ratio] 25.50 kg/m2 25.50 kg/m2 eCW1 ([facility]) Heart rate 92 /min 92 /min eCW1 ([facility]) Respiratory rate 18 /min 18 /min eCW1 ([facility]) Body temperature 97.74 [degF] 97.74 [degF] eCW1 ([facility]) Systolic blood pressure 112 mm[Hg] 112 mm[Hg] e CW1 ([facility]) Diastolic blood pressure 70 mm[Hg] 70 mm[Hg] eCW1 ([facility])
== END 2021-03-10 01:08 | disposition left against medical advice (07) ==
LOC: M ED 00:52
DX: Z53.29 Procedure and treatment not carried out because of patient's decision for other reasons (principal)

== ENCOUNTER 2022-06-23 22:51 | Emergency (ER) | payer MEDICAID ==
[~2022-06-23] VITALS: Ht 167.6 cm; Wt 69.0 kg
[~2022-06-23 22:51] MED LIST changes: -AFRI0.058; +CIME200T4 PO; -GNP200TA4 PO; +OXYM15SP2
[2022-06-23 22:52] VITALS: BP 116/71
== END 2022-06-24 02:37 | disposition left against medical advice (07) ==
LOC: M ED 22:51
DX: Z53.21 Procedure and treatment not carried out due to patient leaving prior to being seen by health care provider (principal)

== ENCOUNTER → 2022-06-30 | Outpatient (REF) | payer MEDICAID | LOC: M LAB REF 12:14 | PROVIDERS: ATTEND Physician Assistant | DX: R19.7 Diarrhea, unspecified (principal); R11.2 Nausea with vomiting, unspecified ==

== ENCOUNTER 2022-07-05 23:27 | Emergency (ER) | payer MEDICAID ==
[~2022-07-05] VITALS: Ht 167.6 cm; Wt 65.9 kg
[2022-07-06 02:13] LABS: HEMATOCRIT 43.4 % (42.0-52.0); HEMOGLOBIN 15.8 g/dl (13.5-17.5); MEAN CORPUSCULAR HGB CONC 36.4 g/dl (32.0-36.5); MEAN CORPUSCULAR VOLUME 85.3 fl (80.0-96.0); PLATELET COUNT, AUTOMATED 273 10^3/uL (150-450); RED BLOOD COUNT 5.09 10^6/uL (4.30-6.10); WHITE BLOOD COUNT 9.2 10^3/uL (4.0-10.0)
[2022-07-06 02:40] LABS: AMPHETAMINES LEVEL URINE NEGATIVE (NEGATIVE); BARBITURATES URINE NEGATIVE (NEGATIVE); CANNABINOIDS URINE NEGATIVE (NEGATIVE); COCAINE METABOLITE URINE NEGATIVE (NEGATIVE); METHADONE URINE NEGATIVE (NEGATIVE); OPIATES URINE NEGATIVE (NEGATIVE); PHENCYCLIDINE URINE NEGATIVE (NEGATIVE)
[2022-07-06 02:42] LABS: ETHYL ALCOHOL (ETHANOL) < 0.003 % (0.000-0.010)
[2022-07-06 02:44] LABS: SALICYLATE LEVEL < 3.0 MG/DL (<30)
[2022-07-06 02:49] LABS: ACETAMINOPHEN LEVEL 77.3 UG/ML (10.0-20.0); ALKALINE PHOSPHATASE 82 U/L (46-116); ALT/SGPT 35 U/L (7.0-40); AST/SGOT 17 U/L (<34); BILIRUBIN,DIRECT 0.3 MG/DL (<0.4); BILIRUBIN,TOTAL 0.8 MG/DL (0.3-1.2); BLOOD UREA NITROGEN 12 MG/DL (9-23); CALCIUM LEVEL 8.9 MG/DL (8.5-10.1); CARBON DIOXIDE LEVEL 26 MMOL/L (20-31); CHLORIDE LEVEL 106 MMOL/L (98-107); CREATININE FOR GFR 0.67 MG/DL (0.70-1.30); GLOMERULAR FILTRATION RATE > 60.0 (>60); GLUCOSE, FASTING 111 MG/DL (60-100); POTASSIUM SERUM 3.9 MMOL/L (3.5-5.1); SODIUM LEVEL 140 MMOL/L (136-145); THYROID STIMULATING HORMONE 0.274 uIU/ML (0.55-4.78)
[2022-07-06 03:12] LABS: BENZODIAZEPINES URINE NEGATIVE (NEGATIVE)
[2022-07-06 03:18] LABS: TOTAL PROTEIN 6.7 G/DL (5.7-8.2)
[2022-07-06 06:18] VITALS: BP 124/78
== END 2022-07-06 06:31 | disposition home or self-care (01) ==
LOC: M ED 23:27
DX: F43.0 Acute stress reaction (principal); F32.9 Major depressive disorder, single episode, unspecified; F84.5 Asperger's syndrome; F17.200 Nicotine dependence, unspecified, uncomplicated; F12.10 Cannabis abuse, uncomplicated; Z79.899 Other long term (current) drug therapy; Z88.8 Allergy status to other drugs, medicaments and biological substances

== ENCOUNTER 2022-11-17 02:58 | Emergency (ER) | payer MEDICAID ==
[~2022-11-17] VITALS: Ht 170.2 cm; Wt 68.2 kg
[2022-11-17 03:04] VITALS: BP 132/72; TEMP 97.8; O2SAT 99
== END 2022-11-17 04:21 | disposition left against medical advice (07) ==
LOC: M ED 02:58 → EDBD 02:58 → M ED 04:21
DX: R51.9 Headache, unspecified (principal); Z53.21 Procedure and treatment not carried out due to patient leaving prior to being seen by health care provider

== ENCOUNTER 2022-12-27 00:16 | Emergency (ER) | payer MEDICAID ==
[~2022-12-27] VITALS: Ht 167.6 cm; Wt 68.8 kg
[2022-12-27 00:17] VITALS: BP 134/84; TEMP 99.3; O2SAT 100
[2022-12-27 01:22] LABS: BASO % 0.4 % (0.0-1.0); EOS # 0.1 10^3/uL (0.0-0.5); EOS % 1.3 % (0.0-3.0); HEMATOCRIT 45.8 % (42.0-52.0); HEMOGLOBIN 16.7 g/dl (13.5-17.5); LYMPH # 1.8 10^3/uL (1.5-5.0); LYMPH % 21.7 % (24.0-44.0); MEAN CORPUSCULAR HEMOGLOBIN 30.9 pg (27.0-33.0); MEAN CORPUSCULAR HGB CONC 36.5 g/dl (32.0-36.5); MEAN CORPUSCULAR VOLUME 84.8 fl (80.0-96.0); MONO # 0.9 10^3/uL (0.0-0.8); MONO % 10.3 % (2.0-8.0); NEUTROPHILS # 5.6 10^3/uL (1.5-8.5); NEUTROPHILS % 65.9 % (36.0-66.0); PLATELET COUNT, AUTOMATED 248 10^3/uL (150-450); WHITE BLOOD COUNT 8.5 10^3/uL (4.0-10.0)
[2022-12-27 01:48] LABS: BLOOD UREA NITROGEN 13 MG/DL (9-23); CARBON DIOXIDE LEVEL 28 MMOL/L (20-31); CHLORIDE LEVEL 106 MMOL/L (98-107); CK-MB VALUE MASS < 1.0 NG/ML (<3.6); CREATININE FOR GFR 0.73 MG/DL (0.70-1.30); GLOMERULAR FILTRATION RATE > 60.0 (>60); GLUCOSE, FASTING 96 MG/DL (60-100); SODIUM LEVEL 141 MMOL/L (136-145)
[2022-12-27 02:33] LABS: CPK CREATINE PHOSPHOKINASE 124 U/L (46-171)
[2022-12-27 02:35] LABS: CK-MB VALUE MASS < 1.0 NG/ML (<3.6)
[2022-12-27 02:37] LABS: CPK CREATINE PHOSPHOKINASE 122 U/L (46-171); MB/CK RELATIVE INDEX 0.81 (< OR =4)
== END 2022-12-27 03:13 | disposition home or self-care (01) ==
LOC: M ED 00:16
DX: F41.1 Generalized anxiety disorder (principal); R56.9 Unspecified convulsions; Z87.820 Personal history of traumatic brain injury; F17.200 Nicotine dependence, unspecified, uncomplicated; Z88.8 Allergy status to other drugs, medicaments and biological substances; Z79.899 Other long term (current) drug therapy

== ENCOUNTER 2022-12-28 21:20 | Emergency (ER) | payer MEDICAID ==
[~2022-12-28] VITALS: Ht 167.6 cm; Wt 68.2 kg
[2022-12-28 21:23] VITALS: BP 116/75; TEMP 97; O2SAT 99
== END 2022-12-29 02:20 | disposition left against medical advice (07) ==
LOC: M ED 21:20
DX: Z53.21 Procedure and treatment not carried out due to patient leaving prior to being seen by health care provider (principal)

== ENCOUNTER 2023-02-10 02:09 | Emergency (ER) | payer MEDICAID ==
[~2023-02-10] VITALS: Ht 167.6 cm; Wt 63.6 kg
[2023-02-10 02:31] VITALS: BP 157/94; TEMP 98; O2SAT 97
[2023-02-10 03:07] LABS: HEMATOCRIT 47.4 % (42.0-52.0); HEMOGLOBIN 17.3 g/dl (13.5-17.5); MEAN CORPUSCULAR HEMOGLOBIN 30.9 pg (27.0-33.0); MEAN CORPUSCULAR HGB CONC 36.5 g/dl (32.0-36.5); MEAN CORPUSCULAR VOLUME 84.6 fl (80.0-96.0); PLATELET COUNT, AUTOMATED 249 10^3/uL (150-450); WHITE BLOOD COUNT 12.9 10^3/uL (4.0-10.0)
[2023-02-10 03:11] LABS: AMPHETAMINES LEVEL URINE NEGATIVE (NEGATIVE); BARBITURATES URINE NEGATIVE (NEGATIVE); BENZODIAZEPINES URINE NEGATIVE (NEGATIVE); CANNABINOIDS URINE NEGATIVE (NEGATIVE); COCAINE METABOLITE URINE NEGATIVE (NEGATIVE); METHADONE URINE NEGATIVE (NEGATIVE); OPIATES URINE NEGATIVE (NEGATIVE); PHENCYCLIDINE URINE NEGATIVE (NEGATIVE)
[2023-02-10 03:13] LABS: ETHYL ALCOHOL (ETHANOL) 0.004 % (0.000-0.010)
[2023-02-10 03:15] LABS: ACETAMINOPHEN LEVEL < 2.0 UG/ML (10.0-20.0); ALBUMIN 4.6 G/DL (3.2-5.2); ALKALINE PHOSPHATASE 90 U/L (46-116); ALT/SGPT 33 U/L (7.0-40); AST/SGOT 30 U/L (<34); BILIRUBIN,DIRECT 0.2 MG/DL (<0.4); BILIRUBIN,TOTAL 0.7 MG/DL (0.3-1.2); BLOOD UREA NITROGEN 15 MG/DL (9-23); CALCIUM LEVEL 9.3 MG/DL (8.5-10.1); CARBON DIOXIDE LEVEL 26 MMOL/L (20-31); CHLORIDE LEVEL 108 MMOL/L (98-107); CREATININE FOR GFR 0.78 MG/DL (0.70-1.30); GLOMERULAR FILTRATION RATE > 60.0 (>60); GLUCOSE, FASTING 115 MG/DL (60-100); SALICYLATE LEVEL < 3.0 MG/DL (<30); SODIUM LEVEL 141 MMOL/L (136-145); TOTAL PROTEIN 7.4 G/DL (5.7-8.2)
[2023-02-10 03:17] LABS: THYROID STIMULATING HORMONE 1.264 uIU/ML (0.55-4.78)
== END 2023-02-10 07:19 | disposition home or self-care (01) ==
LOC: M ED 02:09
DX: R41.82 Altered mental status, unspecified (principal); Z79.899 Other long term (current) drug therapy; Z88.8 Allergy status to other drugs, medicaments and biological substances

== ENCOUNTER 2023-04-10 01:40 | Emergency (ER) | payer MEDICAID ==
[2023-04-10 01:43] VITALS: BP 132/73; TEMP 98; O2SAT 100
== END 2023-04-10 06:37 | disposition home or self-care (01) ==
LOC: M ED 01:40
DX: R07.82 Intercostal pain (principal); R51.9 Headache, unspecified; M54.2 Cervicalgia; Y92.9 Unspecified place or not applicable; Y07.9 Unspecified perpetrator of maltreatment and neglect; Z88.8 Allergy status to other drugs, medicaments and biological substances; F90.9 Attention-deficit hyperactivity disorder, unspecified type; F31.9 Bipolar disorder, unspecified; F43.10 Post-traumatic stress disorder, unspecified; F32.A Depression, unspecified; F17.210 Nicotine dependence, cigarettes, uncomplicated; Z79.899 Other long term (current) drug therapy

== ENCOUNTER 2023-11-16 16:53 | Emergency (ER) | payer MEDICAID ==
[~2023-11-16] VITALS: Ht 167.6 cm; Wt 65.2 kg
[2023-11-16 16:53] VITALS: TEMP 97
[~2023-11-16 16:53] MED LIST changes: -CIME200T4 PO; +CIME200T40 PO; +FLUO-365; -FLUO20CA22; +ONDA-282 PO; -ONDA4TAB6 PO
[2023-11-16] MEDS ORDERED: ACET650T3 PO (17:02)
[2023-11-16 17:38] VITALS: O2SAT 98
[2023-11-16 17:45] VITALS: BP 123/79
== END 2023-11-16 18:31 | disposition home or self-care (01) ==
LOC: M ED 16:53
DX: T75.4XXA Electrocution, initial encounter (principal); I45.10 Unspecified right bundle-branch block; F17.210 Nicotine dependence, cigarettes, uncomplicated; Z88.8 Allergy status to other drugs, medicaments and biological substances; Z79.1 Long term (current) use of non-steroidal anti-inflammatories (NSAID)